=== PATIENT | female | born 1995 | race African-American/Black ===

== ENCOUNTER 2019-07-27 08:36 | Emergency (ER) | payer OTHER ==
[~2019-07-27 08:36] MED LIST: no home meds
[2019-07-27] MEDS ORDERED: AMOXICILLIN500 M2 PO (10:31)
[2019-07-27 10:49] VITALS: BP 141/71
== END 2019-07-27 10:57 | disposition home or self-care (01) | DRG 153 ==
LOC: ED 08:36
DX: J02.9 Acute pharyngitis, unspecified (principal)